=== PATIENT | male | born 1950 | race Two or more races ===

== ENCOUNTER 2019-09-22 12:40 | Inpatient (IN) | payer OTHER ==
[~2019-09-22] VITALS: Ht 185.4 cm; Wt 98.9 kg
[2019-09-22] MEDS ORDERED: COZAAR100 MG PO (13:47)
[2019-09-22] MEDS ORDERED: TOPROL XL25 M1 PO (13:47)
[2019-09-22] MEDS ORDERED: LOSARTAN-HCTZ1 EAC2 (13:47)
== END 2019-09-28 12:12 | disposition home or self-care (01) | DRG 331 ==
LOC: SURH 09-25 05:15 → O/R 09-25 05:15 → SURH 09-25 07:00 → O/R 09-25 12:45 → SURH 09-25 12:45
PROVIDERS: ADMIT Colon & Rectal Surgery
PROC: 07TC4ZZ Resection of Pelvis Lymphatic, Percutaneous Endoscopic Approach (ICD-10-PCS; 2019-09-25)
PROC: 4A1BXSH Monitoring of Gastrointestinal Vascular Perfusion using Indocyanine Green Dye, External Approach (ICD-10-PCS; 2019-09-25)
PROC: 0DTF4ZZ Resection of Right Large Intestine, Percutaneous Endoscopic Approach (ICD-10-PCS; principal; 2019-09-25 07:00)
DX: C18.0 Malignant neoplasm of cecum (principal); K63.5 Polyp of colon; R59.0 Localized enlarged lymph nodes

== ENCOUNTER 2021-05-17 10:34 | Day surgery (SDC) | payer OTHER ==
[~2021-05-17 10:34] MED LIST: COZAAR100 MG PO; LOSARTAN-HCTZ1 EAC2; TOPROL XL25 M1 PO
== END 2021-05-17 13:15 | disposition home or self-care (01) ==
LOC: AMB-ENDOS 10:34
PROVIDERS: ATTEND Colon & Rectal Surgery
DX: K62.1 Rectal polyp (principal); K63.5 Polyp of colon; K64.8 Other hemorrhoids; Z12.11 Encounter for screening for malignant neoplasm of colon